=== PATIENT | female | born 1950 | race Caucasian/White ===

== ENCOUNTER 2017-12-22 11:23 | Day surgery (SDC) | payer MEDICARE, OTHER ==
[~2017-12-22 11:23] MED LIST: ACETAMINOPHEN 1,000 MG/100 ML BTL IV ONE; CLINDAMYCIN PHOS/D5W 900MG 900 MG/50 ML BAG IVPB ONE
[2017-12-22] MEDS ORDERED: LIDOCAINE 2% MDV (20MG/ML) 20ML VIAL IV ONE (11:24)
[2017-12-22] MEDS ORDERED: KETOROLAC 30 MG/ML VIAL IVP ONE (11:24)
[2017-12-22] MEDS ORDERED: SEVOFLURANE 250 ML INH ONE (11:24)
[2017-12-22] MEDS ORDERED: BUPIVACAINE 0.5% W/EPI MPF 30 ML VIAL IVP ONE (11:24)
[2017-12-22] MEDS ORDERED: PROPOFOL 10 MG/ML VIAL IV ONE (11:24)
--- NOTE | 2017-12-25 15:15 | Operative Note ---
DATE: 12/22/17 PREOPERATIVE DIAGNOSIS: INTERNAL DERANGEMENT OF THE LEFT KNEE. POSTOPERATIVE DIAGNOSES: 1. DIFFUSE SYNOVITIS. 2. GRADE 3 CHONDROMALACIA PATELLA. 3. SPLIT RADIAL TEAR INVOLVING THE POSTERIOR HORN OF THE MEDIAL MENISCUS. 4. GRADE 3 CHONDROMALACIA MEDIAL FEMORAL CONDYLE. 5. FRINGE TEAR INVOLVING THE LATERAL HORN OF THE LATERAL MENISCUS. 6. GRADE 3 CHONDROMALACIA OF THE LATERAL FEMORAL CONDYLE AND LATERAL TIBIAL PLATEAU. PROCEDURE: 1. LEFT KNEE ARTHROSCOPY WITH PARTIAL MEDIAL AND LATERAL MENISCECTOMY. 2. LEFT KNEE ARTHROSCOPY WITH SYNOVECTOMY COMPLETE. 3. LEFT KNEE ARTHROSCOPY WITH CHONDROPLASTY OF THE MEDIOLATERAL AND PATELLOFEMORAL COMPARTMENTS. STAFF SURGEON: MARGUERITE SOTELO M.D. ANESTHESIA: GENERAL. PREPARATION: CHLORAPREP. INDIVIDUAL CONSIDERATIONS: NONE. PROCEDURE: The patient was taken to the Operating Room and placed supine on the operating table. She had a successful induction of a general anesthetic. Her left lower extremity was prepped and draped in the usual fashion. The patient had superolateral inflow cannula placed. The skin was infiltrated with 0.50% Marcaine with Epinephrine prior. A large clear effusion was drained and the knee was inflated with normal saline. An inferior medial and an inferior lateral portal were made in a similar fashion. The arthroscope was introduced through the inferior lateral portal up in the pouch. Patient had diffuse synovitis in the pouch and both gutters, this was debrided out with a shaver. She had grade 3 change of the patella, which was smoothed and the notch looked okay. Medially, grade 3 change of the medial femoral condyle was smoothed and she had basically a split radial tear involving the posterior horn of the medial meniscus, most was resected out to a stable rim with basket forceps and a shaver In the notch, the cruciates were normal. Laterally, she had grade 3 change throughout the tibial plateau and lateral femoral condyle and a fringe tear involving the lateral horn of the lateral meniscus all of which was debrided with a shaver. The knee was then irrigated out with saline to remove loose floating debris. The portals were closed with thaddeus and 20 mL of 0.50% plain Marcaine with Epinephrine along with 4 mg of Morphine and 40 mg of DepoMedrol were injected into the knee and a sterile Bulkee compressive dressing was applied. The patient tolerated the procedures well. Needle and sponge counts were correct. Estimated blood loss was minimal and she was taken back to Recovery in good condition. There were no complications. JOB NUMBER: [id number] MTDD
== END 2017-12-22 16:00 | disposition home or self-care (01) ==
LOC: SUR 11:23
PROVIDERS: ATTEND Orthopaedic Surgery
DX: S83.242A Other tear of medial meniscus, current injury, left knee, initial encounter (principal); S83.282A Other tear of lateral meniscus, current injury, left knee, initial encounter; M22.42 Chondromalacia patellae, left knee; M94.262 Chondromalacia, left knee
CPT/HCPCS: 29880; 29876; 01400; J1885; J3490